=== PATIENT | female | born 1950 | race Caucasian/White ===

== ENCOUNTER 2017-02-05 08:13 | Day surgery (SDC) | payer MEDICARE, BC ==
[~2017-02-05 08:13] MED LIST: EPINEPHrine 1:10,000 1 MG/10 ML Syringe ONE; Lactated Ringers 1,000 ML IV SCH; Midazolam 1 MG/ML 2 ML SDV ONE; Propofol 200 MG/20 ML SDV ONE; Sodium Chloride 0.9% 5 ML Syringe FLUSH PRN; fentaNYL 100 MCG/2 ML SDV ONE
[2017-02-05] MEDS ORDERED: Propofol 200 MG/20 ML SDV ONE (08:45)
[2017-02-05] MEDS ORDERED: fentaNYL 100 MCG/2 ML SDV IV ONE (09:25)
[2017-02-05] MEDS ORDERED: Propofol 200 MG/20 ML SDV IV ONE (09:25)
[2017-02-05] MEDS ORDERED: Midazolam 1 MG/ML 2 ML SDV IV ONE (09:25)
--- NOTE | 2017-02-05 10:32 | PCM.PRNOTE ---
- Free Text/Narrative Note: PROCEDURE PERFORMED: Colonoscopy PRE-PROCEDURE DIAGNOSIS/INDICATION FOR PROCEDURE: Change in bowel movements, intermittent rectal bleeding and dark stools CONSENT: Informed consent was obtained prior to the procedure after discussion of the risks (including pain, bleeding, infection, perforation, adverse reaction to anesthesia, cardiovascular event), benefits and alternatives and expected outcomes were discussed with the patient. The patient expressed understanding and wished to proceed. Verbal consent given and consent form signed. PROCEDURAL PAUSE: Completed SEDATION: Per anesthesia DESCRIPTION OF PROCEDURE: Ms. Rizo was placed in the left lateral decubitus position. After adequate sedation and anesthetic was administered, a rectal exam was performed revealing healed external hemorrhoids. A lubricated Olympus Video Colonoscope was inserted into the rectum and air insufflation was performed. The colonoscope was advanced through the rectum, sigmoid, descending , transverse, and ascending colon without difficulties, though was quite torturous in the sigmoid colon. The cecum was reached and the ileocecal valve as well as the appendiceal orifice were identified and pictorially documented. Ileocecal valve was intubated revealing normal ileal tissue. After adequate visualization of the cecum, the scope was withdrawn, giving 360-degree views of the colonic mucosa and retroflexion was performed in the rectum with the following findings noted: Ileocecal valve and visualized ileum: Normal Cecum: Normal Ascending colon: Normal Hepatic flexure: Normal Transverse colon: Normal Splenic flexure: Normal Descending colon: Moderate diverticuli Sigmoid colon: 2mm flat polyp at 50cm removed with cold forceps with complete removal and subsequent controlled bleeding; moderate diverticuli Rectum: Moderate internal hemorrhoids The scope was straightened, air suction performed, and the scope withdrawn without complication. Preparation adequacy excellent. IMPRESSION: Colonoscopy performed revealing 1 small polyp, pathology now pending; left- sided diverticuli; and internal and external hemorrhoids. PLAN: Will contact the patient when pathology results received with recommendation for repeat colonoscopy. Encourage increased fiber diet and bowel regimen to ensure 1-2 soft bowel movements per day. Discussed this with the patient and her following the procedure.
== END 2017-02-05 11:10 | disposition home or self-care (01) ==
LOC: KA.SDS 08:13
PROVIDERS: ATTEND Family Medicine
DX: K63.5 Polyp of colon (principal); K57.32 Diverticulitis of large intestine without perforation or abscess without bleeding; K64.8 Other hemorrhoids; K64.4 Residual hemorrhoidal skin tags; E78.2 Mixed hyperlipidemia; I10 Essential (primary) hypertension; E03.9 Hypothyroidism, unspecified; Z79.82 Long term (current) use of aspirin; Z79.899 Other long term (current) drug therapy; Z98.890 Other specified postprocedural states
CPT/HCPCS: 00810; 45380; J2250; J2704; J3010; J7120; 88305

== ENCOUNTER 2020-07-18 11:28 | Day surgery (SDC) | payer MEDICARE, BC ==
[2020-07-18] MEDS ORDERED: Lactated Ringers 1,000 ML IV SCH (12:00)
[2020-07-18] MEDS ORDERED: Sodium Chloride 0.9% 10 ML Syringe FLUSH PRN (12:00)
--- NOTE | 2020-07-18 12:21 | PCM.PN ---
- General Info Date of Service: 07/18/20 - Review of Systems Systems Review Comment:: 70-year-old female referred for colonoscopy. Her last colon exam was approximately 5 years ago. She has a history of colon polyps. She is also noticed some lower abdominal pain and a change in her bowel pattern. I have discussed the proposed colonoscopy with the patient. Risks such as but not limited to bleeding and GI injury reviewed. She agrees to proceed. Her recent history and physical is reviewed and no significant changes are noted. - Patient Data Vitals - Most Recent: Last Vital Signs Temp 97.9 F 07/18/20 11:44 Pulse 58 L 07/18/20 11:44 Resp 18 07/18/20 11:44 BP 96/53 L 07/18/20 11:44 Pulse Ox 94 L 07/18/20 11:44 Weight - Most Recent: 61.689 kg Med Orders - Current: Current Medications Lactated Ringer's (Ringers, Lactated) 1,000 mls @ 50 mls/hr IV ASDIRECTED [facility] Last Admin: 07/18/20 11:50 Dose: 50 mls/hr Documented by: Sodium Chloride (Sodium Chloride 0.9% 10 Ml Syringe) 10 ml FLUSH Q8HR PRN PRN Reason: keep vein open Sepsis Event Note - Focused Exam Vital Signs: Vital Signs Temp Pulse Resp BP Pulse Ox 07/18/20 11:44 97.9 F 58 L 18 96/53 L 94 L - Problem List Review Problem List Initiated/Reviewed/Updated: Yes - My Orders Last 24 Hours: My Active Orders 07/17/20 14:24 Resuscitation Status Routine 07/18/20 Breakfast Nothing Per Oral Diet [DIET] 07/18/20 12:00 Patient to Empty Bladder [RC] ASDIRECTED Peripheral IV Care [RC] . DIRECTED Lactated Ringers [Ringers, Lactated] 1,000 ml IV ASDIRECTED Sodium Chloride 0.9% [Saline Flush] 10 ml FLUSH Q8HR PRN Peripheral IV Insertion Adult [OM.PC] Routine 07/18/20 13:00 Verify Patient Consent Obtain [RC] ASDIRECTED - Assessment Assessment:: Change in bowel pattern History of colon polyps
[2020-07-18] MEDS ORDERED: Propofol 200 MG/20 ML SDV ONE (12:25)
[2020-07-18] MEDS ORDERED: Midazolam 1 MG/ML 2 ML SDV ONE (12:25)
--- NOTE | 2020-07-18 12:56 | PCM.OPNOTE ---
- General Post-Op/Procedure Note Date of Surgery/Procedure: 07/18/20 Operative Procedure(s): Colonoscopy with polypectomy Findings: Small rectal polyp (destroyed) Extensive Sigmoid Diverticulosis Pre Op Diagnosis: Change in bowel pattern Post-Op Diagnosis: Colon Polyp. Diverticulosis Anesthesia Technique: MAC Primary Surgeon: Ash Franklin Pathology: none EBL in mLs: 0 Complications: None Condition: Good
--- NOTE | 2020-07-18 15:37 | OR ---
DATE OF SURGERY: 07/18/2020 SURGEON: Ash Franklin MD PREOPERATIVE DIAGNOSIS: Change in bowel habits. POSTOPERATIVE DIAGNOSIS: Colon polyp, sigmoid diverticulosis. OPERATION PERFORMED: Colonoscopy with polypectomy. INDICATIONS FOR SURGERY: This 70-year-old female is seen today for colonoscopy. She has noticed a change in her bowel pattern recently with some increasing constipation as well as lower abdominal pain. FINDINGS: The patient does have extensive diverticulosis involving the sigmoid colon. There is some tortuosity with this, although no indication of acute inflammation or stricturing. The patient had 1 small polyp in the rectum approximately 12 cm from the anal verge. This was a 4 mm polyp and was completely destroyed upon removal. The remainder of the colon appears normal. DESCRIPTION OF PROCEDURE: The patient was taken to the operating room. She was given intravenous sedation and with her in the left lateral decubitus position, digital rectal exam was performed showing no rectal masses. The Olympus colonoscope was inserted into the rectum and retroflexed examination of the rectal canal was performed. The scope was then carefully advanced to the more proximal rectum where the above-described polyp was identified. This was removed with a cautery snare, but completely destroyed with cautery, so there was no specimen. The scope was then carefully advanced under direct visualization through the entire length of the colon until the cecum is reached. Cecal acquisition is confirmed by noting the normal internal cecal anatomy including the appendiceal orifice and the ileocecal valve. The light was also noted to transilluminate the abdominal wall of the right lower quadrant. After examining the cecum, the scope was slowly withdrawn, sequentially re-examining the colonic segments until the entire colon and rectum had been fully examined. The scope was removed and the patient was taken from the operating room in satisfactory condition. ESTIMATED BLOOD LOSS: 0. COMPLICATIONS: None. PROGNOSIS: Good. /[id number]/MODL
== END 2020-07-18 14:50 | disposition home or self-care (01) ==
LOC: KA.SDS 11:28
PROVIDERS: ATTEND Surgery
DX: K63.5 Polyp of colon (principal); K57.30 Diverticulosis of large intestine without perforation or abscess without bleeding; F17.210 Nicotine dependence, cigarettes, uncomplicated; E78.00 Pure hypercholesterolemia, unspecified; I10 Essential (primary) hypertension; E03.9 Hypothyroidism, unspecified; K21.9 Gastro-esophageal reflux disease without esophagitis; K50.00 Crohn's disease of small intestine without complications; Z79.899 Other long term (current) drug therapy; Z79.890 Hormone replacement therapy; Z98.890 Other specified postprocedural states
CPT/HCPCS: 00811; 93005; J2250; J2704; J7120

== ENCOUNTER 2021-01-08 19:41 | Observation (INO) | payer MEDICARE, BC ==
[2021-01-08] MEDS ORDERED: Sodium Chloride 0.9% 10 ML Syringe FLUSH PRN ×2 (20:04→20:14)
--- NOTE | 2021-01-08 20:28 | EDM.PDOC ---
ED HPI GENERAL MEDICAL PROBLEM - General Chief Complaint: Cardiovascular Problem Stated Complaint: CHEST PAIN Time Seen by Provider: 01/08/21 20:01 Source of Information: Reports: Patient History Limitations: Reports: No Limitations - History of Present Illness INITIAL COMMENTS - FREE TEXT/NARRATIVE: 70 YO WF PRESENTS TO ER COMPLAINING OF SUBSTERNAL CHEST PAIN WHICH HAS BEEN ON /OFF X 1 WEEK. PT REPORTS PAIN IS MILD, INTERMITTENT WITHOUT AN EXERTIONAL COMPONENT. 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 PT WITH HISTORY OF PULMONARY NODULES WHICH REQUIRES YEARLY CT CHEST EXAMS. PT REPORTS SHE RECENTLY HAD A NUCLEAR STRESS TEST 1 MONTH AGO WHICH WAS NORMAL. PT REPORTS SHE IS INCONSISTENT WITH TAKING HER BLOOD PRESSURE MEDICATION. PT WITH HISTORY OF HYPERLIPIDEMIA, TOBACCO ABUSE, FAMILY HISTORY OF CAD. PT DENIES FEVER/CHILLS, OR COUGH/CONGESTION, OR NAUSEA/VOMITING OR DIAPHORESIS/LIGHTHEADEDNESS. PT IS CURRENTLY CHEST PAIN FREE. Duration: Week(s): (1), Resolved Prior to Arrival, Waxing/Waning Location: Reports: Chest Quality: Reports: Pressure Severity: Mild Improves with: Reports: None Worsens with: Reports: None Associated Symptoms: Reports: Chest Pain. Denies: Fever/Chills, Nausea/Vomiting, Shortness of Breath, Syncope, Weakness - Related Data Allergies Allergy/AdvReac Type Severity Reaction Status Date / Time No Known Drug Allergies Allergy NKDA Verified 01/08/21 20:22 Home Meds: Home Meds Hydrochlorothiazide 25 mg PO DAILY 02/04/17 [History] Losartan [Cozaar] 100 mg PO DAILY 02/04/17 [History] Magnesium Oxide/Magnesium [Magnesium] 300 mg PO DAILY 02/04/17 [History] Potassium Chloride [Klor-Con 10] 10 meq PO DAILY 02/04/17 [History] Sertraline [Zoloft] 50 mg PO DAILY 02/04/17 [History] atorvaSTATin [Lipitor] 20 mg PO BEDTIME 02/04/17 [History] Levothyroxine Sodium [Levothyroxine] 100 mcg PO DAILY 07/17/20 [History] Minocycline HCl 100 mg PO DAILY 07/17/20 [History] Omeprazole 20 mg PO ACBREAKFAST 07/17/20 [History] Simethicone [Gas-X] 125 mg PO ASDIRECTED 07/17/20 [History] Ubidecarenone [Co Q-10] 100 mg PO ASDIRECTED 07/17/20 [History] hydrOXYzine HCL [hydrOXYzine] 10 mg PO QID PRN 07/17/20 [History] Past Medical History HEENT History: Reports: Sinusitis Cardiovascular History: Reports: Hypertension, Other (See Below) Other Cardiovascular History: Mitral valve prolapse Respiratory History: Reports: Bronchitis, Recurrent, Pneumonia, Recurrent Gastrointestinal History: Reports: Hemorrhoids Genitourinary History: Reports: UTI, Recurrent CUSTOM SHOEMAKER History: Reports: Endometriosis, , Spontaneous Musculoskeletal History: Reports: RA, Other (See Below) Other Musculoskeletal History: Bursitis Neurological History: Reports: None Psychiatric History: Reports: None Endocrine/Metabolic History: Reports: Hyperthyroidism Hematologic History: Reports: Anemia Oncologic (Cancer) History: Reports: None - Infectious Disease History Infectious Disease History: Reports: Chicken Pox, Herpes, Measles, Mumps, Pertussis (Whooping Cough), Shingles - Past Surgical History HEENT Surgical History: Reports: None Respiratory Surgical History: Reports: None GI Surgical History: Reports: Colonoscopy Female Surgical History: Reports: Hysterectomy Endocrine Surgical History: Reports: None Neurological Surgical History: Reports: None Musculoskeletal Surgical History: Reports: Carpal Tunnel Social & Family History - Family History Cardiac: Reports: Afib, Angina, Heart Failure, [place] - Caffeine Use Caffeine Use: Reports: Coffee ED ROS GENERAL - Review of Systems Review Of Systems: See Below Constitutional: Reports: No Symptoms HEENT: Reports: No Symptoms Respiratory: Reports: No Symptoms Cardiovascular: Reports: Chest Pain. Denies: Dyspnea on Exertion Endocrine: Reports: No Symptoms GI/Abdominal: Reports: No Symptoms : Reports: No Symptoms Musculoskeletal: Reports: No Symptoms Skin: Reports: No Symptoms Neurological: Reports: No Symptoms Psychiatric: Reports: No Symptoms Hematologic/Lymphatic: Reports: No Symptoms ED EXAM, GENERAL - Physical Exam Exam: See Below Exam Limited By: No Limitations General Appearance: Alert, WD/WN, No Apparent Distress Head: Atraumatic, Normocephalic Neck: Normal Inspection, Supple, Non-Tender, Full Range of Motion Respiratory/Chest: No Respiratory Distress, Lungs Clear, Normal Breath Sounds, No Accessory Muscle Use, Chest Non-Tender Cardiovascular: Normal Peripheral Pulses, No Edema, No Gallop, No JVD, No Murmur, No Rub, Irregularly Irregular GI/Abdominal: Normal Bowel Sounds, Soft, Non-Tender, No Organomegaly, No Distention, No Abnormal Bruit, No Mass Extremities: Normal Inspection, Normal Range of Motion, Non-Tender, No Pedal Edema Neurological: Alert, Oriented, CN II-XII Intact, Normal Cognition, Normal Gait, No Motor/Sensory Deficits Psychiatric: Normal Affect, Normal Mood Skin Exam: Warm, Dry, Intact, Normal Color, No Rash #1 Interpretation EKG Date: 01/08/21 Rhythm: A-Fib Rate (Beats/Min): 66 [place]: Normal P-Wave: Absent QRS: Normal ST-T: Normal QT: Normal Comparison: NA - No Prior EKG Course - Orders/Labs/Meds Orders: Active Orders 24 hr Category Date Time Status Patient Status Manage Transfer [TRANSFER] Routine ADT 01/08/21 20:57 Active Patient Status [ADT] Routine ADT 01/08/21 20:57 Active Cardiac Monitoring [RC] . DIRECTED Care 01/08/21 20:14 Active Cardiac Monitoring [RC] CONTINUOUS Care 01/08/21 20:58 Active Oxygen Therapy [RC] PRN Care 01/08/21 20:57 Active Peripheral IV Care [RC] . DIRECTED Care 01/08/21 20:04 Active Up ad Lisa [RC] ASDIRECTED Care 01/08/21 20:57 Active VTE/DVT Education [RC] PER UNIT ROUTINE Care 01/08/21 20:57 Active Vital Signs [RC] Q4H Care 01/08/21 20:57 Active Heart Healthy Diet [DIET] Diet 01/09/21 Breakfast Active CORONAVIRUS COVID-19 HOSSEIN [MOLEC] Stat Lab 01/08/21 20:57 Ordered TROPONIN I HIGH SENSITIVITY [CHEM] Routine Lab 01/09/21 08:00 Ordered TROPONIN I HIGH SENSITIVITY [CHEM] Timed Lab 01/09/21 02:00 Ordered Sodium Chloride 0.9% [Saline Flush] Med 01/08/21 20:04 Active 10 ml FLUSH Q8HR PRN Sodium Chloride 0.9% [Saline Flush] Med 01/08/21 20:14 Active 10 ml FLUSH Q8HR PRN Peripheral IV Insertion Adult [OM.PC] Routine Oth 01/08/21 20:04 Ordered Resuscitation Status Routine Resus Stat 09/20/21 20:57 Ordered EKG 12 Lead [EK] Stat Ther 01/08/21 19:50 Ordered Medication Orders Sodium Chloride (Sodium Chloride 0.9% 10 Ml Syringe) 10 ml FLUSH Q8HR PRN PRN Reason: keep vein open Sodium Chloride (Sodium Chloride 0.9% 10 Ml Syringe) 10 ml FLUSH Q8HR PRN PRN Reason: keep vein open Labs: Laboratory Tests 01/08/21 01/08/21 Range/Units 20:09 20:09 WBC 11.67 H (5.00-10.00) 10^3/uL RBC 4.50 (3.80-5.50) 10^6/uL Hgb 13.8 (12.0-16.0) g/dL Hct 41.3 (37.0-47.0) % MCV 91.8 (82.0-92.0) fL MCH 30.7 (27.0-31.0) pg MCHC 33.4 (32.0-36.0) g/dL RDW 12.4 (11.5-14.5) % Plt Count 334 (150-400) 10^3/uL MPV 10.5 H (7.4-10.4) fL Immature Gran % (Auto) 0.1 (0.0-5.0) % Neut % (Auto) 61.2 (50.0-70.0) % Lymph % (Auto) 27.5 (20.0-40.0) % [place] % (Auto) 7.7 (2.0-8.0) % Eos % (Auto) 3.1 H (1.0-3.0) % Baso % (Auto) 0.4 (0.0-1.0) % Neut # (Auto) 7.14 H (2.50-7.00) 10^3/uL Lymph # (Auto) 3.21 (1.00-4.00) 10^3/uL [place] # (Auto) 0.90 H (0.10-0.80) 10^3/uL Eos # (Auto) 0.36 H (0.10-0.30) 10^3/uL Baso # (Auto) 0.05 (0.00-0.10) 10^3/uL Immature Gran # (Auto) 0.01 (0.00-0.50) 10^3/uL Sodium 144 (136-145) mmol/L Potassium 3.3 L (3.5-5.1) mmol/L Chloride 105 (98-107) mmol/L Carbon Dioxide 31.0 (21.0-32.0) mmol/L Anion Gap 11.3 (5-15) mmol/L BUN 24 H (7-18) mg/dL Creatinine 0.79 (0.51-1.17) mg/dL Est Cr Clr Drug Dosing TNP Estimated GFR (MDRD) > 60 mL/min Glucose 118 (70-140) mg/dL Calcium 9.0 (8.7-10.3) mg/dL Total Bilirubin 0.2 (0.2-1.0) mg/dL AST 20 (15-37) U/L ALT 27 (14-63) U/L Alkaline Phosphatase 105 (46-116) U/L Troponin I High Sens 6.100 (0-51.000) pg/mL Total Protein 6.8 (6.4-8.2) g/dL Albumin 3.41 (3.40-5.00) g/dL Meds: Medications Generic Name Dose Route Start Last Admin Trade Name Freq PRN Reason Stop Dose Admin Sodium Chloride 10 ml 01/08/21 20:04 Sodium Chloride 0.9% 10 Ml Syringe FLUSH Q8HR PRN keep vein open Sodium Chloride 10 ml 01/08/21 20:14 Sodium Chloride 0.9% 10 Ml Syringe FLUSH Q8HR PRN keep vein open Discontinued Medications Generic Name Dose Route Start Last Admin Trade Name Freq PRN Reason Stop Dose Admin Aspirin 324 mg 01/08/21 20:53 Aspirin 81 Mg Tab.Chew PO 01/08/21 20:54 ONETIME ONE Nitroglycerin 1 gm 01/08/21 20:53 Nitroglycerin 2% Oint 1 Gm Ud Packet TOP 01/08/21 20:54 ONETIME ONE - Radiology Interpretation Free Text/Narrative:: CXR-NAD Departure - Departure Time of Disposition: 20:56 Disposition: Refer to Observation Condition: Fair Clinical Impression: Hypertension Chest pain Qualifiers: Chest pain type: unspecified Qualified Code(s): R07.9 - Chest pain, unspecified Referrals: Suni Sanchez, SHIPPING ASSISTANT [Primary Care Provider] - Forms: ED Department Discharge - My Orders Last 24 Hours: My Active Orders 01/08/21 19:50 EKG 12 Lead [EK] Stat 01/08/21 20:04 Peripheral IV Care [RC] . DIRECTED Sodium Chloride 0.9% [Saline Flush] 10 ml FLUSH Q8HR PRN Peripheral IV Insertion Adult [OM.PC] Routine 01/08/21 20:14 Cardiac Monitoring [RC] . DIRECTED Sodium Chloride 0.9% [Saline Flush] 10 ml FLUSH Q8HR PRN 01/08/21 20:57 Patient Status Manage Transfer [TRANSFER] Routine Patient Status [ADT] Routine Oxygen Therapy [RC] PRN Up ad Lisa [RC] ASDIRECTED VTE/DVT Education [RC] PER UNIT ROUTINE Vital Signs [RC] Q4H CORONAVIRUS COVID-19 HOSSEIN [MOLEC] Stat Resuscitation Status Routine 01/08/21 20:58 Cardiac Monitoring [RC] CONTINUOUS 01/09/21 02:00 TROPONIN I HIGH SENSITIVITY [CHEM] Timed 01/09/21 Breakfast Heart Healthy Diet [DIET] TROPONIN I HIGH SENSITIVITY [CHEM] Routine - Assessment/Plan Last 24 Hours: My Active Orders 01/08/21 19:50 EKG 12 Lead [EK] Stat 01/08/21 20:04 Peripheral IV Care [RC] . DIRECTED Sodium Chloride 0.9% [Saline Flush] 10 ml FLUSH Q8HR PRN Peripheral IV Insertion Adult [OM.PC] Routine 01/08/21 20:14 Cardiac Monitoring [RC] . DIRECTED Sodium Chloride 0.9% [Saline Flush] 10 ml FLUSH Q8HR PRN 01/08/21 20:57 Patient Status Manage Transfer [TRANSFER] Routine Patient Status [ADT] Routine Oxygen Therapy [RC] PRN Up ad Lisa [RC] ASDIRECTED VTE/DVT Education [RC] PER UNIT ROUTINE Vital Signs [RC] Q4H CORONAVIRUS COVID-19 HOSSEIN [MOLEC] Stat Resuscitation Status Routine 01/08/21 20:58 Cardiac Monitoring [RC] CONTINUOUS 01/09/21 02:00 TROPONIN I HIGH SENSITIVITY [CHEM] Timed 01/09/21 Breakfast Heart Healthy Diet [DIET] TROPONIN I HIGH SENSITIVITY [CHEM] Routine Assessment:: 1. ATYPICAL CHEST PAIN 2. HYPERTENSION Plan: 1. ADMIT TO MEDICINE- DR FALLON-OBS ACCEPTED@ 2054 2. ASA/NITRO PER DR FALLON 3. BRAILLE PROOFREADER 4. SUPPORTIVE CARE
--- NOTE | 2021-01-08 20:35 | CR ---
[id number] RAD/RAD Chest PA And Lateral EXAM: RAD Chest PA And Lateral INDICATION: CHEST PAIN COMPARISON: None. DISCUSSION/IMPRESSION: Cardiomediastinal silhouette is normal in size and contour. Lungs are clear. No pleural effusion or pneumothorax. Michael Pearce MD 01/08/212032 Thank you for allowing us to participate in the care of your patient.
[2021-01-08 20:37] LABS: ANION GAP 11.3 mmol/L (5-15); CHLORIDE,CL 105 mmol/L (98-107); SODIUM,NA 144 mmol/L (136-145)
[2021-01-08] MEDS ORDERED: Nitroglycerin 2% Oint 1 GM UD Packet TOP ONE (20:53)
[2021-01-08] MEDS ORDERED: Aspirin 81 MG Tab.Chew PO ONE (20:53)
[2021-01-08] MEDS ORDERED: CLINDAMYCIN PHOSPHATE TOP PRN (21:57)
[2021-01-08] MEDS ORDERED: hydrOXYzine HCl 25 MG Tab PO PRN (21:57)
[2021-01-08] MEDS ORDERED: Nitroglycerin 0.4 MG Tab.SL SL PRN (22:00)
[2021-01-08] MEDS ORDERED: Atropine 0.1 MG/ML 10 ML Syringe IVPUSH PRN (22:00)
[2021-01-08] MEDS ORDERED: EPINEPHrine 1:10,000 1 MG/10 ML Syringe IVPUSH PRN (22:00)
[2021-01-08] MEDS ORDERED: Lidocaine 2% 100 MG/5 ML Syringe IVPUSH PRN (22:00)
[2021-01-09] MEDS ORDERED: Lidocaine 2% Viscous Solution 15 ML Cup PO ONE (05:58)
[2021-01-09] MEDS ORDERED: Alum Hydrox/Mag Hydrox/Simeth 30 ML, Lidocaine 2% 15 ML PO ONE ×2 (05:58)
[2021-01-09] MEDS ORDERED: Aluminum Hydroxide/Magnesium Hydroxide/Simethicone Susp 30 ML Cup PO ONE (05:58)
[2021-01-09] MEDS ORDERED: Sodium Chloride 0.9% 1,000 ML IV SCH (06:00)
[2021-01-09] MEDS ORDERED: atorvaSTATin 40 MG Tab**OWN MED PO SCH (09:00)
[2021-01-09] MEDS ORDERED: Calcium Citrate/Vitamin D3 315 MG-250 Unit Tab PO SCH (09:00)
[2021-01-09] MEDS ORDERED: Hydrochlorothiazide 25 MG Tab PO SCH (09:00)
[2021-01-09] MEDS ORDERED: atorvaSTATin 10 MG Tab PO SCH (09:00)
[2021-01-09] MEDS ORDERED: Hydrochlorothiazide 25 MG Tab **OWN MED PO SCH (09:00)
[2021-01-09] MEDS ORDERED: Aspirin 325 MG Tab.EC PO SCH (09:00)
[2021-01-09] MEDS ORDERED: Potassium Chloride 20 MEQ Tab.ER PO ONE (10:49)
--- NOTE | 2021-01-09 10:58 | PCM.HP.2 ---
H&P History of Present Illness - General Date of Service: 01/09/21 Admit Problem/Dx: Admission Diagnosis/Problem Admission Diagnosis/Problem Chest pain Middle Chest Pain Score (Numeric/FACES): 6 - Related Data Allergies/Adverse Reactions: Allergies Allergy/AdvReac Type Severity Reaction Status Date / Time No Known Drug Allergies Allergy NKDA Verified 01/08/21 20:22 Home Medications: Home Meds Hydrochlorothiazide 25 mg PO DAILY 02/04/17 [History] Losartan [Cozaar] 100 mg PO DAILY 02/04/17 [History] Magnesium Oxide/Magnesium [Magnesium] 300 mg PO DAILY 02/04/17 [History] Sertraline [Zoloft] 50 mg PO DAILY 02/04/17 [History] atorvaSTATin [Lipitor] 40 mg PO DAILY 02/04/17 [History] Levothyroxine Sodium [Levothyroxine] 100 mcg PO DAILY 07/17/20 [History] Omeprazole 20 mg PO ACBREAKFAST 07/17/20 [History] Simethicone [Gas-X] 125 mg PO ASDIRECTED PRN 07/17/20 [History] Calcium Citrate/Vitamin D3 [Calcium Citrate - Vit D Tablet] 1 each PO DAILY 01/08/21 [History] Clindamycin Phosphate [Cleocin T 1% Gel] 1 applic TOP BID PRN 01/08/21 [History] Melatonin 20 mg PO BEDTIME PRN 01/08/21 [History] Multivitamin 1 each PO DAILY 01/08/21 [History] Potassium Gluconate [Potassium] 595 mg PO DAILY 01/08/21 [History] Ubidecarenone [Co Q-10] 30 mg PO DAILY 01/08/21 [History] hydrOXYzine pamoate [Hydroxyzine Pamoate] 25 mg PO QID PRN 01/08/21 [History] traZODone 50 mg PO BEDTIME PRN 01/08/21 [History] Aspirin 325 mg PO DAILY #0 01/09/21 [Rx] Past Medical History HEENT History: Reports: Sinusitis Cardiovascular History: Reports: High Cholesterol, Hypertension, Other (See Below) Other Cardiovascular History: Mitral valve prolapse in 1990. bilateral carotid artery stenosis. 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) Respiratory History: Reports: Bronchitis, Recurrent, Pneumonia, Recurrent Other Respiratory History: Tobacco use disorder Gastrointestinal History: Reports: Hemorrhoids Other Gastrointestinal History: gastroenteritis (05/28/15) Genitourinary History: Reports: UTI, Recurrent COAGULATING BATH MIXER History: Reports: Endometriosis, , Spontaneous Musculoskeletal History: Reports: Osteoarthritis, RA, Other (See Below) Other Musculoskeletal History: Bursitis Neurological History: Reports: None Psychiatric History: Reports: None, Anxiety Endocrine/Metabolic History: Reports: Hypothyroidism Hematologic History: Reports: Anemia Oncologic (Cancer) History: Reports: None - Infectious Disease History Infectious Disease History: Reports: Chicken Pox, Herpes, Measles, Mumps, Pertu ssis (Whooping Cough), Shingles - Past Surgical History HEENT Surgical History: Reports: None Respiratory Surgical History: Reports: None GI Surgical History: Reports: Colonoscopy Female Surgical History: Reports: Hysterectomy Other Female Surgeries/Procedures: hysterectomy in 1983 Endocrine Surgical History: Reports: None Neurological Surgical History: Reports: None Musculoskeletal Surgical History: Reports: Carpal Tunnel Social & Family History - Family History Cardiac: Reports: Afib, Angina, Heart Failure, [place] - Tobacco Use Tobacco Use Status *Q: Current Every Day Tobacco User Years of Tobacco use: 50 Packs/Tins Daily: 1 - Caffeine Use Caffeine Use: Reports: Coffee - Recreational Drug Use Recreational Drug Use: No Exam - Vital Signs Vital Signs: Last Vital Signs Temp 97.6 F 01/09/21 06:21 Pulse 57 L 01/09/21 06:21 Resp 18 01/09/21 06:21 BP 135/49 L 01/09/21 06:21 Pulse Ox 94 L 01/09/21 06:21 Weight: 136 lb 8 oz - Patient Data Lab Results Last 24 hrs: Laboratory Results - last 24 hr 01/08/21 01/08/21 01/08/21 Range/Units 20:09 20:09 21:05 WBC 11.67 H (5.00-10.00) 10^3/uL RBC 4.50 (3.80-5.50) 10^6/uL Hgb 13.8 (12.0-16.0) g/dL Hct 41.3 (37.0-47.0) % MCV 91.8 (82.0-92.0) fL MCH 30.7 (27.0-31.0) pg MCHC 33.4 (32.0-36.0) g/dL RDW 12.4 (11.5-14.5) % Plt Count 334 (150-400) 10^3/uL MPV 10.5 H (7.4-10.4) fL Immature Gran % (Auto) 0.1 (0.0-5.0) % Neut % (Auto) 61.2 (50.0-70.0) % Lymph % (Auto) 27.5 (20.0-40.0) % Burke % (Auto) 7.7 (2.0-8.0) % Eos % (Auto) 3.1 H (1.0-3.0) % Baso % (Auto) 0.4 (0.0-1.0) % Neut # (Auto) 7.14 H (2.50-7.00) 10^3/uL Lymph # (Auto) 3.21 (1.00-4.00) 10^3/uL Burke # (Auto) 0.90 H (0.10-0.80) 10^3/uL Eos # (Auto) 0.36 H (0.10-0.30) 10^3/uL Baso # (Auto) 0.05 (0.00-0.10) 10^3/uL Immature Gran # (Auto) 0.01 (0.00-0.50) 10^3/uL Sodium 144 (136-145) mmol/L Potassium 3.3 L (3.5-5.1) mmol/L Chloride 105 (98-107) mmol/L Carbon Dioxide 31.0 (21.0-32.0) mmol/L Anion Gap 11.3 (5-15) mmol/L BUN 24 H (7-18) mg/dL Creatinine 0.79 (0.51-1.17) mg/dL Est Cr Clr Drug Dosing TNP Estimated GFR (MDRD) > 60 mL/min Glucose 118 (70-140) mg/dL Calcium 9.0 (8.7-10.3) mg/dL Total Bilirubin 0.2 (0.2-1.0) mg/dL AST 20 (15-37) U/L ALT 27 (14-63) U/L Alkaline Phosphatase 105 (46-116) U/L Troponin I High Sens 6.100 (0-51.000) pg/mL Total Protein 6.8 (6.4-8.2) g/dL Albumin 3.41 (3.40-5.00) g/dL SARS CoV-2 RNA Rapid HOSSEIN Negative (NEGATIVE) 01/09/21 01/09/21 Range/Units 01:53 07:45 WBC (5.00-10.00) 10^3/uL RBC (3.80-5.50) 10^6/uL Hgb (12.0-16.0) g/dL Hct (37.0-47.0) % MCV (82.0-92.0) fL MCH (27.0-31.0) pg MCHC (32.0-36.0) g/dL RDW (11.5-14.5) % Plt Count (150-400) 10^3/uL MPV (7.4-10.4) fL Immature Gran % (Auto) (0.0-5.0) % Neut % (Auto) (50.0-70.0) % Lymph % (Auto) (20.0-40.0) % Burke % (Auto) (2.0-8.0) % Eos % (Auto) (1.0-3.0) % Baso % (Auto) (0.0-1.0) % Neut # (Auto) (2.50-7.00) 10^3/uL Lymph # (Auto) (1.00-4.00) 10^3/uL Burke # (Auto) (0.10-0.80) 10^3/uL Eos # (Auto) (0.10-0.30) 10^3/uL Baso # (Auto) (0.00-0.10) 10^3/uL Immature Gran # (Auto) (0.00-0.50) 10^3/uL Sodium (136-145) mmol/L Potassium (3.5-5.1) mmol/L Chloride (98-107) mmol/L Carbon Dioxide (21.0-32.0) mmol/L Anion Gap (5-15) mmol/L BUN (7-18) mg/dL Creatinine (0.51-1.17) mg/dL Est Cr Clr Drug Dosing Estimated GFR (MDRD) mL/min Glucose (70-140) mg/dL Calcium (8.7-10.3) mg/dL Total Bilirubin (0.2-1.0) mg/dL AST (15-37) U/L ALT (14-63) U/L Alkaline Phosphatase (46-116) U/L Troponin I High Sens 11.100 9.700 (0-51.000) pg/mL Total Protein (6.4-8.2) g/dL Albumin (3.40-5.00) g/dL SARS CoV-2 RNA Rapid HOSSEIN (NEGATIVE) Result Diagrams: 01/08/21 20:09 01/08/21 20:09 Sepsis Event Note - Evaluation Sepsis Screening Result: No Definite Risk - Focused Exam Vital Signs: Vital Signs Temp Pulse Resp BP Pulse Ox 01/09/21 06:21 97.6 F 57 L 18 135/49 L 94 L 01/09/21 03:00 97.0 F 56 L 20 124/51 L 94 L Problem List Initiated/Reviewed/Updated: Yes Orders Last 24hrs: Active Orders 24 hr Category Date Time Status Patient Status [ADT] Routine ADT 01/08/21 20:57 Active Cardiac Monitoring [RC] 03,07,11,15,19,23 Care 01/08/21 20:58 Active Oxygen Therapy [RC] PRN Care 01/08/21 20:57 Active Up ad Lisa [RC] ASDIRECTED Care 01/08/21 20:57 Active VTE/DVT Education [RC] PER UNIT ROUTINE Care 01/08/21 20:57 Active Vital Signs [RC] 03,07,11,15,19,23 Care 01/08/21 20:57 Active Heart Healthy Diet [DIET] Diet 01/09/21 Breakfast Active Aspirin [Ecotrin] Med 01/09/21 09:00 Active 325 mg PO DAILY Atropine [Atropine 0.1 MG/ML] Med 01/08/21 22:00 Active See Dose Instructions IVPUSH ASDIRECTED PRN Calcium Citrate/Vitamin D3 [Calcium Citrate + D] Med 01/09/21 09:00 Active 1 tab PO DAILY Clindamycin Phosphate [Cleocin T 1% Gel] Med 01/08/21 21:57 Pending 1 applic TOP BID PRN EPINEPHrine [EPINEPHrine 1:10,000] Med 01/08/21 22:00 Active 1 mg IVPUSH ASDIRECTED PRN Lidocaine 2% [Xylocaine 2%] Med 01/08/21 22:00 Active See Dose Instructions IVPUSH ASDIRECTED PRN Nitroglycerin [Nitrostat] Med 01/08/21 22:00 Active 0.4 mg SL ASDIRECTED PRN Sodium Chloride 0.9% [Normal Saline] 1,000 ml Med 01/09/21 06:00 Active IV ASDIRECTED Sodium Chloride 0.9% [Saline Flush] Med 01/08/21 20:04 Active 10 ml FLUSH Q8HR PRN atorvaSTATin [Lipitor] Med 01/09/21 09:00 Active 40 mg PO DAILY hydrOXYzine HCL [Atarax] Med 01/08/21 21:57 Active 25 mg PO QID PRN hydroCHLOROthiazide Med 01/09/21 09:00 Active 25 mg PO DAILY Peripheral IV Insertion Adult [OM.PC] Routine Oth 01/08/21 20:04 Ordered Resuscitation Status Routine Resus Stat 01/08/21 20:57 Ordered EKG 12 Lead [EK] Stat Ther 01/08/21 19:50 Stop Req EKG 12 Lead [EK] Stat Ther 01/09/21 05:42 Ordered Medication Orders Aspirin (Aspirin 325 Mg Tab.Ec) 325 mg PO DAILY [facility] Atorvastatin Calcium (Atorvastatin 40 Mg TabOwn Med) 40 mg PO DAILY [facility] Last Admin: 01/09/21 08:23 Dose: 40 mg Documented by: ANEESH Atropine Sulfate (Atropine 0.1 Mg/Ml 10 Ml Syringe) 0 mg IVPUSH ASDIRECTED PRN PRN Reason: Heart. Calcium Citrate (Calcium Citrate/Vitamin D3 315 Mg-250 Unit Tab) 1 tab PO DAILY [facility] Epinephrine HCl (Epinephrine 1:10,000 1 Mg/10 Ml Syringe) 1 mg IVPUSH ASDIRECTED PRN PRN Reason: Heart. Hydrochlorothiazide (Hydrochlorothiazide 25 Mg Tab Own Med) 25 mg PO DAILY [facility] Last Admin: 01/09/21 08:23 Dose: 25 mg Documented by: ANEESH Hydroxyzine HCl (Hydroxyzine Hcl 25 Mg Tab) 25 mg PO QID PRN PRN Reason: anxiety or itching Sodium Chloride (Normal Saline) 1,000 mls @ 100 mls/hr IV ASDIRECTED [facility] Last Admin: 01/09/21 06:15 Dose: 100 mls/hr Documented by: AIMEE Lidocaine HCl (Lidocaine 2% 100 Mg/5 Ml Syringe) 0 mg IVPUSH ASDIRECTED PRN PRN Reason: Heart. Nitroglycerin (Nitroglycerin 0.4 Mg Tab.Sl) 0.4 mg SL ASDIRECTED PRN PRN Reason: Heart. Non-Formulary Medication (Clindamycin Phosphate [Cleocin T 1% Gel]) 1 applic TOP BID PRN PRN Reason: Other Sodium Chloride (Sodium Chloride 0.9% 10 Ml Syringe) 10 ml FLUSH Q8HR PRN PRN Reason: keep vein open Last Admin: 01/08/21 20:07 Dose: 10 ml Documented by: AIMEE Assessment/Plan Comment:: HPI summary: ED course: Hospital course: Hospitalization problems and plan: # Chronic, stable conditions: # Hospitalization details: # FEN: # PPX: # Code status: # Emergency contact: # Disposition:
--- NOTE | 2021-01-09 10:59 | PCM.DCSUM1 ---
Discharge Summary - Hospital Course Free Text/Narrative:: Date of admission: Date of discharge: Admission diagnoses: Discharge diagnoses: Consultations: Procedures: Hospital course: Discharge and follow-up recommendations: - Discharge to - New medications at discharge: - Follow-up - Discharge Data Discharge Disposition: Home, Self-Care 01 Condition: Good - Referral to Home Health Primary Care Physician: Suni Sanchez NP - Discharge Plan Home Medications: Home Meds Hydrochlorothiazide 25 mg PO DAILY 02/04/17 [History] Losartan [Cozaar] 100 mg PO DAILY 02/04/17 [History] Magnesium Oxide/Magnesium [Magnesium] 300 mg PO DAILY 02/04/17 [History] Sertraline [Zoloft] 50 mg PO DAILY 02/04/17 [History] atorvaSTATin [Lipitor] 40 mg PO DAILY 02/04/17 [History] Levothyroxine Sodium [Levothyroxine] 100 mcg PO DAILY 07/17/20 [History] Omeprazole 20 mg PO ACBREAKFAST 07/17/20 [History] Simethicone [Gas-X] 125 mg PO ASDIRECTED PRN 07/17/20 [History] Aspirin 325 mg PO DAILY 01/08/21 [History] Calcium Citrate/Vitamin D3 [Calcium Citrate - Vit D Tablet] 1 each PO DAILY 01/08/21 [History] Clindamycin Phosphate [Cleocin T 1% Gel] 1 applic TOP BID PRN 01/08/21 [History] Ibuprofen 200 - 600 mg PO TID PRN 01/08/21 [History] Melatonin 20 mg PO BEDTIME PRN 01/08/21 [History] Multivitamin 1 each PO DAILY 01/08/21 [History] Potassium Gluconate [Potassium] 595 mg PO DAILY 01/08/21 [History] Ubidecarenone [Co Q-10] 30 mg PO DAILY 01/08/21 [History] hydrOXYzine pamoate [Hydroxyzine Pamoate] 25 mg PO QID PRN 01/08/21 [History] traZODone 50 mg PO BEDTIME PRN 01/08/21 [History] Forms: ED Department Discharge Referrals: Suni Sanchez [employer] [Primary Care Provider] - - Patient Data Vitals - Most Recent: Last Vital Signs Temp 97.6 F 01/09/21 06:21 Pulse 57 L 01/09/21 06:21 Resp 18 01/09/21 06:21 BP 135/49 L 01/09/21 06:21 Pulse Ox 94 L 01/09/21 06:21 Weight - Most Recent: 136 lb 8 oz I&O - Last 24 hours: Intake & Output 01/08/21 01/09/21 01/09/21 22:59 06:59 14:59 Intake Total 250 Balance 250 Lab Results - Last 24 hrs: Laboratory Results - last 24 hr 01/08/21 01/08/21 01/08/21 Range/Units 20:09 20:09 21:05 WBC 11.67 H (5.00-10.00) 10^3/uL RBC 4.50 (3.80-5.50) 10^6/uL Hgb 13.8 (12.0-16.0) g/dL Hct 41.3 (37.0-47.0) % MCV 91.8 (82.0-92.0) fL MCH 30.7 (27.0-31.0) pg MCHC 33.4 (32.0-36.0) g/dL RDW 12.4 (11.5-14.5) % Plt Count 334 (150-400) 10^3/uL MPV 10.5 H (7.4-10.4) fL Immature Gran % (Auto) 0.1 (0.0-5.0) % Neut % (Auto) 61.2 (50.0-70.0) % Lymph % (Auto) 27.5 (20.0-40.0) % Moca % (Auto) 7.7 (2.0-8.0) % Eos % (Auto) 3.1 H (1.0-3.0) % Baso % (Auto) 0.4 (0.0-1.0) % Neut # (Auto) 7.14 H (2.50-7.00) 10^3/uL Lymph # (Auto) 3.21 (1.00-4.00) 10^3/uL Moca # (Auto) 0.90 H (0.10-0.80) 10^3/uL Eos # (Auto) 0.36 H (0.10-0.30) 10^3/uL Baso # (Auto) 0.05 (0.00-0.10) 10^3/uL Immature Gran # (Auto) 0.01 (0.00-0.50) 10^3/uL Sodium 144 (136-145) mmol/L Potassium 3.3 L (3.5-5.1) mmol/L Chloride 105 (98-107) mmol/L Carbon Dioxide 31.0 (21.0-32.0) mmol/L Anion Gap 11.3 (5-15) mmol/L BUN 24 H (7-18) mg/dL Creatinine 0.79 (0.51-1.17) mg/dL Est Cr Clr Drug Dosing TNP Estimated GFR (MDRD) > 60 mL/min Glucose 118 (70-140) mg/dL Calcium 9.0 (8.7-10.3) mg/dL Total Bilirubin 0.2 (0.2-1.0) mg/dL AST 20 (15-37) U/L ALT 27 (14-63) U/L Alkaline Phosphatase 105 (46-116) U/L Troponin I High Sens 6.100 (0-51.000) pg/mL Total Protein 6.8 (6.4-8.2) g/dL Albumin 3.41 (3.40-5.00) g/dL SARS CoV-2 RNA Rapid HOSSEIN Negative (NEGATIVE) 01/09/21 01/09/21 Range/Units 01:53 07:45 WBC (5.00-10.00) 10^3/uL RBC (3.80-5.50) 10^6/uL Hgb (12.0-16.0) g/dL Hct (37.0-47.0) % MCV (82.0-92.0) fL MCH (27.0-31.0) pg MCHC (32.0-36.0) g/dL RDW (11.5-14.5) % Plt Count (150-400) 10^3/uL MPV (7.4-10.4) fL Immature Gran % (Auto) (0.0-5.0) % Neut % (Auto) (50.0-70.0) % Lymph % (Auto) (20.0-40.0) % Moca % (Auto) (2.0-8.0) % Eos % (Auto) (1.0-3.0) % Baso % (Auto) (0.0-1.0) % Neut # (Auto) (2.50-7.00) 10^3/uL Lymph # (Auto) (1.00-4.00) 10^3/uL Moca # (Auto) (0.10-0.80) 10^3/uL Eos # (Auto) (0.10-0.30) 10^3/uL Baso # (Auto) (0.00-0.10) 10^3/uL Immature Gran # (Auto) (0.00-0.50) 10^3/uL Sodium (136-145) mmol/L Potassium (3.5-5.1) mmol/L Chloride (98-107) mmol/L Carbon Dioxide (21.0-32.0) mmol/L Anion Gap (5-15) mmol/L BUN (7-18) mg/dL Creatinine (0.51-1.17) mg/dL Est Cr Clr Drug Dosing Estimated GFR (MDRD) mL/min Glucose (70-140) mg/dL Calcium (8.7-10.3) mg/dL Total Bilirubin (0.2-1.0) mg/dL AST (15-37) U/L ALT (14-63) U/L Alkaline Phosphatase (46-116) U/L Troponin I High Sens 11.100 9.700 (0-51.000) pg/mL Total Protein (6.4-8.2) g/dL Albumin (3.40-5.00) g/dL SARS CoV-2 RNA Rapid HOSSEIN (NEGATIVE) Med Orders - Current: Current Medications Aspirin (Aspirin 325 Mg Tab.Ec) 325 mg PO DAILY [facility] Atorvastatin Calcium (Atorvastatin 40 Mg TabOwn Med) 40 mg PO DAILY [facility] Last Admin: 01/09/21 08:23 Dose: 40 mg Documented by: Atropine Sulfate (Atropine 0.1 Mg/Ml 10 Ml Syringe) 0 mg IVPUSH ASDIRECTED PRN PRN Reason: Heart. Calcium Citrate (Calcium Citrate/Vitamin D3 315 Mg-250 Unit Tab) 1 tab PO DAILY [facility] Epinephrine HCl (Epinephrine 1:10,000 1 Mg/10 Ml Syringe) 1 mg IVPUSH ASDIRECTED PRN PRN Reason: Heart. Hydrochlorothiazide (Hydrochlorothiazide 25 Mg Tab Own Med) 25 mg PO DAILY [facility] Last Admin: 01/09/21 08:23 Dose: 25 mg Documented by: Hydroxyzine HCl (Hydroxyzine Hcl 25 Mg Tab) 25 mg PO QID PRN PRN Reason: anxiety or itching Sodium Chloride (Normal Saline) 1,000 mls @ 100 mls/hr IV ASDIRECTED [facility] Last Admin: 01/09/21 06:15 Dose: 100 mls/hr Documented by: Lidocaine HCl (Lidocaine 2% 100 Mg/5 Ml Syringe) 0 mg IVPUSH ASDIRECTED PRN PRN Reason: Heart. Nitroglycerin (Nitroglycerin 0.4 Mg Tab.Sl) 0.4 mg SL ASDIRECTED PRN PRN Reason: Heart. Non-Formulary Medication (Clindamycin Phosphate [Cleocin T 1% Gel]) 1 applic TOP BID PRN PRN Reason: Other Sodium Chloride (Sodium Chloride 0.9% 10 Ml Syringe) 10 ml FLUSH Q8HR PRN PRN Reason: keep vein open Last Admin: 01/08/21 20:07 Dose: 10 ml Documented by: Discontinued Medications Al Hydroxide/Mg Hydroxide (Aluminum Hydroxide/Magnesium Hydroxide/Simethicone Susp 30 Ml Cup) 30 ml PO ONETIME ONE Stop: 01/09/21 05:59 Last Admin: 01/09/21 06:18 Dose: 30 ml Documented by: Aspirin (Aspirin 81 Mg Tab.Chew) 324 mg PO ONETIME ONE Stop: 01/08/21 20:54 Last Admin: 01/08/21 20:58 Dose: 324 mg Documented by: Atorvastatin Calcium (Atorvastatin 10 Mg Tab) 40 mg PO DAILY [facility] Hydrochlorothiazide (Hydrochlorothiazide 25 Mg Tab) 25 mg PO DAILY [facility] Lidocaine HCl (Lidocaine 2% Viscous Solution 15 Ml Cup) 15 ml PO ONETIME ONE Stop: 01/09/21 05:59 Last Admin: 01/09/21 06:18 Dose: 15 ml Documented by: Nitroglycerin (Nitroglycerin 2% Oint 1 Gm Ud Packet) 1 gm TOP ONETIME ONE Stop: 01/08/21 20:54 Last Admin: 01/08/21 21:14 Dose: 1 gm Documented by: Potassium Chloride (Potassium Chloride 20 Meq Tab.Er) 20 meq PO ONETIME ONE Stop: 01/09/21 10:50 Sodium Chloride (Sodium Chloride 0.9% 10 Ml Syringe) 10 ml FLUSH Q8HR PRN PRN Reason: keep vein open
== END 2021-01-09 12:03 | disposition home or self-care (01) ==
LOC: KA.ED 19:41 → KA.MS 20:57
PROVIDERS: ADMIT Physician Assistant Medical; ATTEND Family Medicine
DX: R07.89 Other chest pain (principal); I10 Essential (primary) hypertension; Z20.822 Contact with and (suspected) exposure to COVID-19; F17.210 Nicotine dependence, cigarettes, uncomplicated; J44.9 Chronic obstructive pulmonary disease, unspecified; Z79.899 Other long term (current) drug therapy
CPT/HCPCS: 36415; 71046; 80053; 84484; 85025; 93005; 99285-25; A9270-GY; G0378; J7030; U0002

== ENCOUNTER 2023-05-22 21:03 | Emergency (ER) | payer MEDICARE ==
[2023-05-22] MEDS ORDERED: Acetaminophen/HYDROcodone 325-10 MG Tab PO ONE (22:31)
[2023-05-22] MEDS ORDERED: Sodium Chloride 0.9% 10 ML Syringe FLUSH PRN (23:00)
== END 2023-05-23 00:27 | disposition home or self-care (01) ==
LOC: SUPCPDRO 21:03 → KA.ED 21:03
DX: M79.652 Pain in left thigh (principal); I10 Essential (primary) hypertension; E78.00 Pure hypercholesterolemia, unspecified; E03.9 Hypothyroidism, unspecified; Z79.899 Other long term (current) drug therapy; Z88.8 Allergy status to other drugs, medicaments and biological substances
CPT/HCPCS: 99283; A9270-GY; J3490

== ENCOUNTER 2024-08-03 16:27 | Emergency (ER) | payer MEDICARE ==
[2024-08-03] MEDS ORDERED: Sodium Chloride 0.9% 10 ML Syringe FLUSH PRN (17:08)
[2024-08-03 17:20] LABS: BASOPHILS ABSOLUTE AUTO 0.04 10^3/uL (0.00-0.10); BASOPHILS PERCENT AUTO 0.5 % (0.0-1.0); EOSINOPHILS ABSOLUTE AUTO 0.11 10^3/uL (0.10-0.30); EOSINOPHILS PERCENT AUTO 1.4 % (1.0-3.0); HEMATOCRIT 24.9 % (37.0-47.0); HEMOGLOBIN 7.6 g/dL (12.0-16.0); IMMATURE GRAN ABSOLUTE AUTO 0.02 10^3/uL (0.00-0.04); IMMATURE GRAN PERCENT AUTO 0.3 % (0.0-0.4); LYMPHOCYTES ABSOLUTE AUTO 1.29 10^3/uL (1.00-4.00); LYMPHOCYTES PERCENT AUTO 16.5 % (20.0-40.0); MEAN CORPUSCULAR HGB CONC 30.5 g/dL (32.0-36.0); MEAN CORPUSCULAR VOLUME 88.3 fL (82.0-92.0); MEAN PLATELET VOLUME 10.6 fL (7.4-10.4); MONOCYTES ABSOLUTE AUTO 0.88 10^3/uL (0.10-0.80); MONOCYTES PERCENT AUTO 11.2 % (2.0-8.0); NEUTROPHILS PERCENT AUTO 70.1 % (50.0-70.0); PLATELET COUNT,PLT 262 10^3/uL (150-400); RED BLOOD CELL COUNT 2.82 10^6/uL (3.80-5.50); RED CELL DISTRIBUTION WIDTH 16.2 % (11.5-14.5); WHITE BLOOD CELL COUNT,WBC 7.84 10^3/uL (5.00-10.00)
[2024-08-03 17:33] LABS: ALBUMIN 3.23 g/dL (3.40-5.00); ANION GAP 12.6 mmol/L (5-15); BILIRUBIN TOTAL 0.1 mg/dL (0.2-1.0); CALCIUM 9.6 mg/dL (8.7-10.3); CARBON DIOXIDE,CO2 26.5 mmol/L (21.0-32.0); CREATININE 0.94 mg/dL (0.51-1.17); EST CRCL DRUG DOSING (CG) 44.65 mL/min; POTASSIUM,K 4.1 mmol/L (3.5-5.1); PROTEIN TOTAL,TP 6.3 g/dL (6.4-8.2)
[2024-08-03 17:38] LABS: PROTHROMBIN TIME 10.3 SEC (9.1-12.0); PTT,PARTIAL THROMBOPLSTIN TIME 20.3 SEC (21.6-32.4)
[2024-08-03] MEDS: Pantoprazole 40 MG Vial IVPUSH ONE (17:58)
[2024-08-03] MEDS: Lactated Ringers 1,000 ML IV SCH (18:05)
[2024-08-03] MEDS: Pantoprazole 40 MG Vial ONE (18:15)
== END 2024-08-03 19:49 | disposition home or self-care (01) ==
LOC: KA.ED 16:27
DX: K92.1 Melena (principal); D64.9 Anemia, unspecified; I48.91 Unspecified atrial fibrillation; I25.10 Atherosclerotic heart disease of native coronary artery without angina pectoris; E78.00 Pure hypercholesterolemia, unspecified; I10 Essential (primary) hypertension; E03.9 Hypothyroidism, unspecified; Z79.01 Long term (current) use of anticoagulants; Z88.8 Allergy status to other drugs, medicaments and biological substances; Z79.890 Hormone replacement therapy; Z79.899 Other long term (current) drug therapy; Z79.82 Long term (current) use of aspirin; Z79.02 Long term (current) use of antithrombotics/antiplatelets; Z87.891 Personal history of nicotine dependence
CPT/HCPCS: 80053; 85025; 85610; 85730; 93010; 96361; 96374; 99284; 99285-25; J2470; J7120